=== PATIENT | female | born 1955 | race Caucasian/White ===

== ENCOUNTER 2021-07-10 14:30 | Inpatient (IN) | payer MEDICARE, SELFPAY ==
[2021-07-10] VITALS (7 sets, daily range): BP systolic 110–135; BP diastolic 51–77; PULSE 82–95; RESP 13–18; TEMP 36.4–36.8; O2SAT 96–100; BMI 42.3
--- NOTE | ~2021-07-10 | XR_ITS ---
EXAMINATION: XR CHEST CLINICAL INFORMATION: Chest pain COMPARISON: None TECHNIQUE: Frontal portable view of the chest was obtained. 1615 hours FINDINGS: Lung volume is low. This causes prominence of bronchovascular markings. There are a few scattered patchy airspace opacities in the mid and lower right lung and at the left lung base concerning for an acute process, pneumonia. No pleural effusion or pneumothorax. Cardiac and mediastinal contours are normal. Heart size is normal. Multilevel degenerative spondylosis of the dorsal spine. XR/XR chest 1V IMPRESSION: There are a few scattered patchy airspace opacities in the mid and lower right lung and at the left lung base concerning for an acute process, pneumonia. Consider short-term follow-up PA lateral chest x-ray or CT of chest.
--- NOTE | 2021-07-10 14:35 | ECG_ITS ---
Test Reason : CHEST PAIN Blood Pressure : / mmHG Vent. Rate : 076 BPM Atrial Rate : 076 BPM P-R Int : 140 ms QRS Dur : 076 ms QT Int : 378 ms P-R-T Axes : 044 022 027 degrees QTc Int : 425 ms Normal sinus rhythm Normal ECG No previous ECGs available Referred By: Kehinde Fleming Electronically Signed By:Darron De La Paz
--- NOTE | 2021-07-10 15:22 | PC.NURSE ---
pt refusing to sit in wheelchair in the waiting room, refusing to sit in [address] bed. requesting dc if not placed in a room immediatley
--- NOTE | 2021-07-10 16:03 | ECG_ITS ---
Test Reason : CHEST PAIN Blood Pressure : / mmHG Vent. Rate : 082 BPM Atrial Rate : 082 BPM P-R Int : 142 ms QRS Dur : 080 ms QT Int : 392 ms P-R-T Axes : 041 027 031 degrees QTc Int : 457 ms Normal sinus rhythm Normal ECG When compared with ECG of 10-JUL-2021 14:35, No significant change was found Referred By: Maddi Webster Electronically Signed By:Darron De La Paz
--- NOTE | 2021-07-10 16:07 | PC.NURSE ---
c/o substernal cp, radiating through to back, intermittent, also headache since last night. on 5mg eloquis BID. no trauma. uses 2L home O2. no neuro deficits.
--- NOTE | 2021-07-10 16:14 | ED_ITS ---
HPI - Chest Pain General Chief Complaint: Chest Pain Stated Complaint: Chest Pain Time Seen by Provider: 07/10/21 15:37 Source: patient and EMS Mode of arrival: EMS History of Present Illness HPI narrative: 65-year-old female with a PMHx mast cell disease, GERD, HTN, hypothyroid, NAM, obesity, COVID-19 in late April complicated by pneumonia and PE on Eliquis, now on home O2 2L NC, finished course of Doxycycline yesterday for continued pneumonia, BIBA c/o substernal left-sided chest pain radiating to left breast/back since yesterday. Reports pain is constant/dull. Also reports cough productive of green phlegm and chills. Denies fever, SOB, abdominal pain, nausea/vomiting, pedal edema MD complaint: chest pain Onset (ago): day(s) Related Data Allergies Allergy/AdvReac Type Severity Reaction Status Date / Time morphine Allergy Unknown mast cell Verified 10/11/18 00:00 activation Sulfa (Sulfonamide Allergy Unknown itching Verified 10/11/18 00:00 Antibiotics) vancomycin Allergy Unknown mast cell Verified 10/11/18 00:00 activation Heparin & NaCl Lock Flush Allergy Unknown Uncoded 10/11/18 00:00 muscle relaxants Allergy Unknown mast cell Uncoded 10/11/18 00:00 activation surgical tape Allergy Unknown Uncoded 10/11/18 00:00 Review of Systems Review of Systems: Constitutional: No Fever, + Chills, No Fatigue, No Malaise ENT/Mouth: No Ear Pain, No Nasal Congestion, No Hoarseness, No sore throat, No Swallowing Difficulty Eyes: No Eye Pain, No Swelling, No Redness, No Discharge Cardiovascular: + Chest Pain, No SOB, No Dyspnea on Exertion, No Orthopnea, No Edema, No Palpitations Respiratory: + Cough, + Sputum, No Dyspnea Gastrointestinal: No Nausea, No Vomiting, No Diarrhea, No Constipation, No Abdominal pain Genitourinary: No Dysuria, No Hematuria, No Urinary Incontinence, No Flank Pain Musculoskeletal: No joint pain, No Myalgias, No Joint Swelling Skin: No Skin Lesions, No rash Neuro: No Weakness, No Numbness, No Dizziness, No Headache Yes all other systems are reviewed and are negative PMFSH Past Medical History Attestation statement: The following information was validated with the patient. Medical History COVID-19 Social History Social History Alcohol intake: never Patient Tobacco Use Status: Never used Tobacco Use of substances other than those prescribed or required for medical reasons: No Advance Directives: No Advance Directives Information Provided: No Physical Exam Vital Signs: Vital Signs: Last Vital Signs Temp 98.2 F 07/10/21 19:39 Pulse 83 07/10/21 19:39 Resp 17 07/10/21 19:39 BP 130/58 L 07/10/21 19:39 Pulse Ox 97 07/10/21 19:39 BMI result Body Mass Index 42.3 Const: General: cooperative and no acute distress Orientation/consciousness: patient oriented x3 Limitations: no limitations HENMT: Head: Yes normal to inspection Ears: hearing grossly normal bilatera lly General nose exam: Normal external nose present Face and sinus: Yes normal facial exam Eyes: General: appearance normal, both eyes and all related structures EOM: EOMs intact bilaterally Neck: Neck: Yes normal visual inspection and Yes no meningeal signs Chest: Other: Left anteriorolateral chest wall under breast, reproducing subjective complaint Chest palpation & inspection: no crepitus and tenderness Resp: Effort & Inspection: normal respiratory effort Auscultation: clear to auscultation bilaterally, no rales, no rhonchi and no wheezes Cardio: Rate: regular rate Heart sounds: S1 normal heart sound present and S2 normal heart sound present GI: Inspection: Yes normal to inspection Palpation (GI): Soft to palpation, nontender, no guarding and not rigid Skin: Rashes: no rashes Wounds: no wounds Neuro: General: patient oriented x3 and no meningeal signs Gait exam (Neuro): Normal gait present Extrem: Other: +2 b/l LE pitting edema General: Yes normal to inspection Course Course Course Narrative: XR chest 1V IMPRESSION: There are a few scattered patchy airspace opacities in the mid and lower right lung and at the left lung base concerning for an acute process, pneumonia. Consider short-term follow-up PA lateral chest x-ray or CT of chest. >> concern for HCAP/persistent pneumonia. Will cover with cefepime. Plan will be admission -1956--no leukocytosis. D-dimer negative. Labs otherwise unremarkable. Troponin negative. COVID-19 negative MDM - Chest Pain MDM Narrative Medical decision making narrative: 65-year-old female with a PMHx mast cell disease, GERD, HTN, hypothyroid, NAM, obesity, COVID-19 in late April complicated by pneumonia and PE on Eliquis, now on home O2 2L at rest, 3L with exertion, finished course of Doxycycline yesterday for continued pneumonia, BIBA c/o substernal left-sided chest pain radiating to left breast/back since yesterday. On exam sating 97 % on 2L NC (baseline), lungs CTA, bilateral LE pitting edema, CP reproducible on exam. Concern for pneumonia vs PE vs ACS. Symptoms atypical for dissection/AAA Plan: EKG, labs, CXR, COVID-19 testing, re-evaluate Differential Diagnosis Differential diagnosis: Likely pneumothorax, stable angina, atypical chest pain, st elevation myocardial infarction, costochondritis and chest pain Medical Records Data Attestation: I reviewed the patient's medical records. Lab Data Attestation: I reviewed the patient's lab results. Result diagrams: 07/10/21 18:49 07/10/21 18:49 Labs: Lab Results 07/10/21 07/10/21 07/10/21 Range/Units 17:04 18:49 18:49 WBC 10.1 (4.8-10.8) X10*3/uL RBC 3.67 L (4.20-5.50) X10*6/uL Hgb 11.6 L (12.0-16.0) g/dl Hct 36.5 L (37.0-47.0) % MCV 99.5 H (80.0-98.0) fL MCH 31.6 (27.0-33.0) pg MCHC 31.8 (31.0-35.0) g/dl RDW 16.8 H (11.0-16.0) % Plt Count 435 H (160-400) X10*3/uL MPV 10.1 (9.4-12.3) fL Immature Gran % (Auto) 1.1 H (0.0-0.4) % Neut % (Auto) 64.5 (45-73) % Lymph % (Auto) 27.3 (20-40) % [place] % (Auto) 6.0 (2-11) % Eos % (Auto) 0.7 (0-4) % Baso % (Auto) 0.4 (0-2) % Lymph # (Auto) 2.8 (1.2-4.9) X10*3/uL [place] # (Auto) 0.6 (0.1-1.2) X10*3/uL Eos # (Auto) 0.1 (0.0-0.4) X10*3/uL Baso # (Auto) 0.0 (0.0-0.2) X10*3/uL Abs Immat Gran (auto) 0.11 H (0.00-0.03) X10*3/uL Absolute Neuts (auto) 6.5 (2.0-8.3) x10*3/uL Absolute Nucleated RBC 0.000 (0.0-0.012) X10*3/uL Nucleated RBC % (auto) 0.0 (0.0-0.2) /100WBC PT (9.9-13.0) SEC INR (0.9-1.1) APTT (24.1-38.0) SEC D-Dimer High Sensitivty NG/ML Sodium 141 (135-145) mmol/L Potassium 3.6 (3.3-5.1) mmol/L Chloride 99 (96-108) mmol/L Carbon Dioxide 33 H (22-29) mmol/L Anion Gap 13 (12-20) BUN 13 (9-16) mg/dL Creatinine 0.73 (0.5-1.4) mg/dL Estim Creat Clear Calc 79.7 Estimated GFR > 60 Random Glucose 96 (60-115) mg/dL Lactic Acid (0.5-2.0) mmol/L Calcium 10.0 (8.4-10.2) mg/dL Magnesium 2.0 (1.6-2.6) mg/dL Total Bilirubin 0.4 (0.0-1.0) mg/dL Direct Bilirubin 0.2 (0.0-0.5) mg/dL AST 14 (5-31) U/L ALT 18 (0-31) U/L Alkaline Phosphatase 82 (39-117) U/L Troponin I High Sens (<3.5-17.0) ng/L B-Natriuretic Peptide (<100) pg/mL Total Protein 7.0 (6.5-8.0) g/dL Albumin 3.9 (3.5-5.0) g/dL COVID-19 (MATT) Negative (Negative) COVID-19 Clin Com See Note 07/10/21 07/10/21 07/10/21 Range/Units 18:49 18:49 18:49 WBC (4.8-10.8) X10*3/uL RBC (4.20-5.50) X10*6/uL Hgb (12.0-16.0) g/dl Hct (37.0-47.0) % MCV (80.0-98.0) fL MCH (27.0-33.0) pg MCHC (31.0-35.0) g/dl RDW (11.0-16.0) % Plt Count (160-400) X10*3/uL MPV (9.4-12.3) fL Immature Gran % (Auto) (0.0-0.4) % Neut % (Auto) (45-73) % Lymph % (Auto) (20-40) % [place] % (Auto) (2-11) % Eos % (Auto) (0-4) % Baso % (Auto) (0-2) % Lymph # (Auto) (1.2-4.9) X10*3/uL [place] # (Auto) (0.1-1.2) X10*3/uL Eos # (Auto) (0.0-0.4) X10*3/uL Baso # (Auto) (0.0-0.2) X10*3/uL Abs Immat Gran (auto) (0.00-0.03) X10*3/uL Absolute Neuts (auto) (2.0-8.3) x10*3/uL Absolute Nucleated RBC (0.0-0.012) X10*3/uL Nucleated RBC % (auto) (0.0-0.2) /100WBC PT 13.1 H (9.9-13.0) SEC INR 1.2 H (0.9-1.1) APTT 43.7 H (24.1-38.0) SEC D-Dimer High Sensitivty < 150 NG/ML Sodium (135-145) mmol/L Potassium (3.3-5.1) mmol/L Chloride (96-108) mmol/L Carbon Dioxide (22-29) mmol/L Anion Gap (12-20) BUN (9-16) mg/dL Creatinine (0.5-1.4) mg/dL Estim Creat Clear Calc Estimated GFR Random Glucose (60-115) mg/dL Lactic Acid (0.5-2.0) mmol/L Calcium (8.4-10.2) mg/dL Magnesium (1.6-2.6) mg/dL Total Bilirubin (0.0-1.0) mg/dL Direct Bilirubin (0.0-0.5) mg/dL AST (5-31) U/L ALT (0-31) U/L Alkaline Phosphatase (39-117) U/L Troponin I High Sens < 3.5 (<3.5-17.0) ng/L B-Natriuretic Peptide 35 (<100) pg/mL Total Protein (6.5-8.0) g/dL Albumin (3.5-5.0) g/dL COVID-19 (MATT) (Negative) COVID-19 Clin Com 07/10/21 Range/Units 18:49 WBC (4.8-10.8) X10*3/uL RBC (4.20-5.50) X10*6/uL Hgb (12.0-16.0) g/dl Hct (37.0-47.0) % MCV (80.0-98.0) fL MCH (27.0-33.0) pg MCHC (31.0-35.0) g/dl RDW (11.0-16.0) % Plt Count (160-400) X10*3/uL MPV (9.4-12.3) fL Immature Gran % (Auto) (0.0-0.4) % Neut % (Auto) (45-73) % Lymph % (Auto) (20-40) % [place] % (Auto) (2-11) % Eos % (Auto) (0-4) % Baso % (Auto) (0-2) % Lymph # (Auto) (1.2-4.9) X10*3/uL [place] # (Auto) (0.1-1.2) X10*3/uL Eos # (Auto) (0.0-0.4) X10*3/uL Baso # (Auto) (0.0-0.2) X10*3/uL Abs Immat Gran (auto) (0.00-0.03) X10*3/uL Absolute Neuts (auto) (2.0-8.3) x10*3/uL Absolute Nucleated RBC (0.0-0.012) X10*3/uL Nucleated RBC % (auto) (0.0-0.2) /100WBC PT (9.9-13.0) SEC INR (0.9-1.1) APTT (24.1-38.0) SEC D-Dimer High Sensitivty NG/ML Sodium (135-145) mmol/L Potassium (3.3-5.1) mmol/L Chloride (96-108) mmol/L Carbon Dioxide (22-29) mmol/L Anion Gap (12-20) BUN (9-16) mg/dL Creatinine (0.5-1.4) mg/dL Estim Creat Clear Calc Estimated GFR Random Glucose (60-115) mg/dL Lactic Acid 1.2 (0.5-2.0) mmol/L Calcium (8.4-10.2) mg/dL Magnesium (1.6-2.6) mg/dL Total Bilirubin (0.0-1.0) mg/dL Direct Bilirubin (0.0-0.5) mg/dL AST (5-31) U/L ALT (0-31) U/L Alkaline Phosphatase (39-117) U/L Troponin I High Sens (<3.5-17.0) ng/L B-Natriuretic Peptide (<100) pg/mL Total Protein (6.5-8.0) g/dL Albumin (3.5-5.0) g/dL COVID-19 (MATT) (Negative) COVID-19 Clin Com ECG Data ECG #1: Attestation: I personally reviewed and interpreted this ECG as follows: ECG interpretation date: 07/10/21 ECG interpretation time: 14:35 Prior ECG tracings: available for review Interpretation: EKG normal sinus rhythm with a rate of 82. [place] interval 142. QTC 457. No significant change when compared to prior EKG. Discharge Plan Discharge Clinical Impression: Pneumonia
[2021-07-10 17:49] LABS: COVID-19 Test Negative (Negative); IDNOW Serial# 9DD0AD1C
[2021-07-10] MEDS: Acetaminophen 325 MG TABLET 650 MG PO (18:07)
--- NOTE | 2021-07-10 18:09 | PC.NURSE ---
very difficult stick. still awaits phlebotomy for labs. heat packed. has been a very difficult stick. unlabored resp at rest in bed in 2L.
[2021-07-10 19:06] LABS: MANUAL DIFF FLAG NO
[2021-07-10] MEDS: cefEPime HCl 2 GM in 0.9 % Sodium Chloride 50 ML IV (19:12)
[2021-07-10 19:19] LABS: Lactic Acid 1.2 mmol/L (0.5-2.0)
[2021-07-10 19:23] LABS: Alanine Aminotransferase 18 U/L (0-31); Albumin Level 3.9 g/dL (3.5-5.0); Alkaline Phosphatase 82 U/L (39-117); Anion Gap 13 (12-20); Aspartate Amino Transferase 14 U/L (5-31); Bilirubin Direct 0.2 mg/dL (0.0-0.5); Bilirubin Total 0.4 mg/dL (0.0-1.0); Blood Urea Nitrogen 13 mg/dL (9-16); Carbon Dioxide 33 mmol/L (22-29); Chloride 99 mmol/L (96-108); Creatinine Clr Calc Pharmacy 79.7; Estimated Glomerular Filt Rate > 60; Glucose Random 96 mg/dL (60-115); Potassium 3.6 mmol/L (3.3-5.1); Sodium 141 mmol/L (135-145)
[2021-07-10 19:25] LABS: Basophils Percent Auto 0.4 % (0-2); Eosinophils Absolute Auto 0.1 X10*3/uL (0.0-0.4); Eosinophils Percent Auto 0.7 % (0-4); Hematocrit 36.5 % (37.0-47.0); Hemoglobin 11.6 g/dl (12.0-16.0); Imm Gran Abs Auto 0.11 X10*3/uL (0.00-0.03); Imm Gran Pct Auto 1.1 % (0.0-0.4); Lymphocytes Absolute Auto 2.8 X10*3/uL (1.2-4.9); Lymphocytes Percent Auto 27.3 % (20-40); Mean Corpuscular HGB Conc 31.8 g/dl (31.0-35.0); Mean Corpuscular Hemoglobin 31.6 pg (27.0-33.0); Mean Corpuscular Volume 99.5 fL (80.0-98.0); Mean Platelet Volume 10.1 fL (9.4-12.3); Monocytes Absolute Auto 0.6 X10*3/uL (0.1-1.2); Neutrophils Absolute Auto 6.5 x10*3/uL (2.0-8.3); Neutrophils Percent Auto 64.5 % (45-73); Platelet Count 435 X10*3/uL (160-400); Red Blood Count 3.67 X10*6/uL (4.20-5.50); Red Cell Distribution Width 16.8 % (11.0-16.0); White Blood Count 10.1 X10*3/uL (4.8-10.8)
[2021-07-10 19:27] LABS: B Type Natriuretic Peptide 35 pg/mL (<100); Troponin-I High Sensitivity < 3.5 ng/L (<3.5-17.0)
[2021-07-10 19:45] LABS: INTERNATIONAL NORM RATIO 1.2 (0.9-1.1); Prothrombin Time 13.1 SEC (9.9-13.0)
[2021-07-10 19:47] LABS: Partial Thromboplastin Time 43.7 SEC (24.1-38.0)
[2021-07-10 19:50] LABS: D Dimer High Sensitivity < 150 NG/ML
--- NOTE | 2021-07-10 20:47 | PHA.MEDREC ---
Pharmacy Consult ? Medication Reconciliation Pharmacy has completed the medication reconciliation. Spoke to patient, she took all her medications before coming in today.
--- NOTE | 2021-07-10 22:32 | P.HPHOSP_ITS ---
History of Present Illness Date of Service: 07/10/21 Chief Complaint: sob this is a 65-year-old female past medical history of PE on Eliquis, mastocytosis, hypothyroidism, hypertension, GERD, restless leg syndrome who presents to the hospital with complaints of left-sided chest pain. Patient gives me a lengthy history regarding her recent COVID infection, patient was found to have COVID in April, complicated by PE, and recurrent pneumonia. Patient reports that she was being treated up until June 09 at the hospitalfor the above-mentioned issues, due to the COVID infection as well as the PE patient is now on chronic 2 L of oxygen. She reports that about 10 days ago she started feeling unwell. She started having significant cough, shortness of breath on exertion, chills, her primary care doctor got a chest x-ray which showed persistent pneumonia, she was started on doxycycline finished her course yesterday. Patient reports that while on doxycycline she did improve but once her doxycycline completed she once again started feeling unwell. She complained of left-sided chest pain to her visiting nurse who encouraged her to come to the hospital. Patient describes the chest pain as a dull ache radiating to the back, worse with cough, intermittent, 4/10 at its worse and is usually when she has a coughing bout. Currently resolved and it is at 0. She feels that the pain is at the site of her pneumonia. Denies any fever, no chills, no change in vision, headache, no nausea vomiting, abdominal pain, no urinary symptoms and no lower extremity edema. On arrival to the ED patient hemodynamically stable with no significant abnormal vitals Labs are significant for WBC count of 10.0, hemoglobin of 11.6, hematocrit 36.5, PT of 13.1, INR of 1.2, Chest x-ray showed few scattered patchy airspace opacities in the mid and lower right lung and at the left lung base concerning for an acute process, pneumonia. Patient given IV antibiotics and will be admitted for further management Review of Systems Review of Systems: Yes all other systems are reviewed and are negative [facility] Medical History (Updated 07/11/21 @ 06:29 by Ean Cunningham MD) COVID-19 Hypertension Hypothyroidism Mastocytosis Pulmonary emboli Family History (Updated 07/11/21 @ 06:28 by Ean Cunningham MD) Other No family history of coronary artery disease Surgical History (Updated 07/11/21 @ 06:27 by Ean Cunningham MD) History of bilateral knee replacement Social History Alcohol intake: never Patient Tobacco Use Status: Never used Tobacco Use of substances other than those prescribed or required for medical reasons: No Advance Directives: No Advance Directives Information Provided: No Meds Allergies Allergy/AdvReac Type Severity Reaction Status Date / Time morphine Allergy Unknown mast cell Verified 10/11/18 00:00 activation Sulfa (Sulfonamide Allergy Unknown itching Verified 10/11/18 00:00 Antibiotics) vancomycin Allergy Unknown mast cell Verified 10/11/18 00:00 activation amoxicillin [From Augmentin] Allergy Facial Verified 07/10/21 22:58 Swelling clavulanic acid Allergy Facial Verified 07/10/21 22:58 [From Augmentin] Swelling heparin AdvReac Cough Verified 07/10/21 22:57 Heparin & NaCl Lock Flush Allergy Unknown coughing Uncoded 07/10/21 22:57 chocking fit muscle relaxants Allergy Unknown mast cell Uncoded 10/11/18 00:00 activation surgical tape Allergy Unknown Cough Uncoded 07/10/21 22:57 Active Medications: Current Medications Apixaban (Apixaban 5 Mg Tablet) 5 mg PO BID JR Baclofen (Baclofen 20 Mg Tablet) 20 mg PO BEDTIME JR Diphenhydramine HCl (Diphenhydramine Hcl 25 Mg Tablet) 25 mg PO BEDTIME JR Gabapentin (Gabapentin 300 Mg Capsule) 300 mg PO TID JR Levothyroxine Sodium (Levothyroxine Sodium 88 Mcg Tablet) 88 mcg PO DAILY JR Montelukast Sodium (Montelukast Sodium 10 Mg Tablet) 10 mg PO DAILY JR Non-Formulary Medication (Losartan-Hydrochlorothiazide) 1 tab PO DAILY JR Non-Formulary Medication (Pantoprazole) 40 mg PO BID JR Pramipexole Dihydrochloride (Pramipexole Di-Hcl 0.25 Mg Tablet) 0.25 mg PO BEDTIME JR Home Medications Medication Instructions Recorded Confirmed Last Taken Type apixaban 5 mg tablet (Eliquis) 1 tab PO BID 07/10/21 07/10/21 07/10/21 History baclofen 20 mg tablet 1 tab PO BEDTIME 07/10/21 07/10/21 07/09/21 History diphenhydramine HCl 25 mg tablet 25 mg PO BEDTIME 07/10/21 07/10/21 07/09/21 History gabapentin 300 mg capsule 1 cap PO TID 07/10/21 07/10/21 07/10/21 History levothyroxine 88 mcg tablet 1 tab PO DAILY 07/10/21 07/10/21 07/10/21 History (Levoxyl) losartan 100 1 tab PO DAILY 07/10/21 07/10/21 07/10/21 History mg-hydrochlorothiazide 25 mg tablet montelukast 10 mg tablet 1 tab PO DAILY 07/10/21 07/10/21 07/10/21 History pantoprazole 40 mg tablet,delayed 40 mg PO BID 07/10/21 07/10/21 07/10/21 History release pramipexole 0.25 mg tablet 1 tab PO BEDTIME 07/10/21 07/10/21 07/09/21 History Physical Exam Vital Signs and Narrative: Vital Signs: Last Vital Signs Temp 98.1 F 07/10/21 22:29 Pulse 85 07/10/21 22:29 Resp 13 07/10/21 22:29 BP 112/51 L 07/10/21 22:29 Pulse Ox 96 07/10/21 22:29 BMI result Body Mass Index 42.3 Const: General: cooperative and no acute distress Orientation/consciousness: patient oriented x3 Eyes: General: appearance normal, both eyes and all related structures Pupils: Equal, round and reactive pupils present Resp: Other: bilateral crackles Effort & Inspection: normal respiratory effort Cardio: Rate: regular rate Rhythm: regular rhythm GI: Palpation (GI): Soft to palpation Auscultation: normal bowel sounds Skin: General skin exam: no rashes or lesions noted Neuro: General: patient oriented x3 Cranial nerves: Yes Equal, round and reactive pupils present Cognition (Neuro): normal cognition Extrem: General: Yes normal to inspection and Yes no pedal edema Results Labs CBC and Chem 7: 07/10/21 18:49 07/10/21 18:49 Labs: Laboratory Results - last 24 hr 07/10/21 07/10/21 07/10/21 17:04 18:49 18:49 Hgb 11.6 L MCV 99.5 H MCH 31.6 MCHC 31.8 RDW 16.8 H Plt Count 435 H MPV 10.1 Immature Gran % (Auto) 1.1 H Neut % (Auto) 64.5 Lymph % (Auto) 27.3 [place] % (Auto) 6.0 Eos % (Auto) 0.7 Baso % (Auto) 0.4 Lymph # (Auto) 2.8 [place] # (Auto) 0.6 Eos # (Auto) 0.1 Baso # (Auto) 0.0 Abs Immat Gran (auto) 0.11 H Absolute Neuts (auto) 6.5 Absolute Nucleated RBC 0.000 Nucleated RBC % (auto) 0.0 PT INR APTT D-Dimer High Sensitivty Anion Gap 13 Estim Creat Clear Calc 79.7 Estimated GFR > 60 Random Glucose 96 Lactic Acid Calcium 10.0 Magnesium 2.0 Total Bilirubin 0.4 Direct Bilirubin 0.2 AST 14 ALT 18 Alkaline Phosphatase 82 B-Natriuretic Peptide Total Protein 7.0 Albumin 3.9 COVID-19 (MATT) Negative COVID-19 Clin Com See Note 07/10/21 07/10/21 07/10/21 18:49 18:49 18:49 Hgb MCV MCH MCHC RDW Plt Count MPV Immature Gran % (Auto) Neut % (Auto) Lymph % (Auto) [place] % (Auto) Eos % (Auto) Baso % (Auto) Lymph # (Auto) [place] # (Auto) Eos # (Auto) Baso # (Auto) Abs Immat Gran (auto) Absolute Neuts (auto) Absolute Nucleated RBC Nucleated RBC % (auto) PT 13.1 H INR 1.2 H APTT 43.7 H D-Dimer High Sensitivty < 150 Anion Gap Estim Creat Clear Calc Estimated GFR Random Glucose Lactic Acid 1.2 Calcium Magnesium Total Bilirubin Direct Bilirubin AST ALT Alkaline Phosphatase B-Natriuretic Peptide 35 Total Protein Albumin COVID-19 (MATT) COVID-19 Clin Com ECG Interpretation: EKG showed normal sinus rhythm with no ST T wave changes Imaging Radiologist's Impressions: Impressions Chest X-Ray 07/10/21 16:15 IMPRESSION: There are a few scattered patchy airspace opacities in the mid and lower right lung and at the left lung base concerning for an acute process, pneumonia. Consider short-term follow-up PA lateral chest x-ray or CT of chest. Assessment and Plan (1) Pneumonia: Status: Acute (2) Pleuritic chest pain: Status: Acute Plan 65-year-old female with history of COVID-19 pneumonia as well as PE presents to the hospital chest pain found to have pneumonia # pleuritic chest pain - most likely secondary to pneumonia - troponin negative, EKG shows no ACS - treatment of pneumonia, conservative management # pneumonia - failed outpatient therapy - will have to treat for hospital-acquired given her recent admission - broad-spectrum antibiotics - follow cultures # history of PE - continue Eliquis # hypertension - stable - continue home antihypertensives # hypothyroidism - continue levothyroxine DVT prophylaxis: Eliquis Quality Stroke Does the patient have a stroke diagnosis?: No VTE Prior VTE?: No VTE Risk Level:: Medical - moderate - high VTE Device Contraindication: Treatment Not Indicated VTE Drug Contraindication: N/A - Med Ordered
[2021-07-10] MEDS: Baclofen 20 MG TABLET PO (22:53)
[2021-07-10] MEDS: Apixaban 5 MG TABLET PO (22:53)
[2021-07-10] MEDS: Gabapentin 300 MG CAPSULE PO (22:53)
[2021-07-10] MEDS: diphenhydrAMINE HCL 25 MG TABLET PO (22:53)
[2021-07-10] MEDS: Pramipexole Di-HCL 0.25 MG TABLET PO (22:59)
[2021-07-11] VITALS (7 sets, daily range): BP systolic 100–134; BP diastolic 42–79; PULSE 87–96; RESP 13–18; TEMP 36.6–37; O2SAT 95–100
--- NOTE | 2021-07-11 00:41 | PC.NURSE ---
Addendum entered by Leesa Villalobos 07/11/21 00:43: medication levofloxacin that was due at 2230 not given due to allergy. hospitalist made aware. Original Note: hospitalist made aware of pt newly found allergy to iv antib. levophloxine
[2021-07-11] MEDS: cefEPime HCl 2 GM in 0.9 % Sodium Chloride 50 ML IV ×3 (03:00→17:11)
[2021-07-11] MEDS: Doxycycline Hyclate 100 MG in 0.9 % Sodium Chloride 250 ML 166.67 MG IV ×2 (03:01→13:25)
[2021-07-11] MEDS: Acetaminophen 325 MG TABLET 650 MG PO (04:53)
[2021-07-11 07:57] LABS: MANUAL DIFF FLAG NO
[2021-07-11 07:59] LABS: Basophils Percent Auto 0.4 % (0-2); Eosinophils Absolute Auto 0.1 X10*3/uL (0.0-0.4); Eosinophils Percent Auto 1.2 % (0-4); Hematocrit 34.7 % (37.0-47.0); Hemoglobin 10.8 g/dl (12.0-16.0); Imm Gran Abs Auto 0.07 X10*3/uL (0.00-0.03); Imm Gran Pct Auto 0.9 % (0.0-0.4); Lymphocytes Absolute Auto 2.1 X10*3/uL (1.2-4.9); Lymphocytes Percent Auto 25.1 % (20-40); Mean Corpuscular HGB Conc 31.1 g/dl (31.0-35.0); Mean Corpuscular Hemoglobin 31.1 pg (27.0-33.0); Mean Platelet Volume 10.3 fL (9.4-12.3); Monocytes Absolute Auto 0.6 X10*3/uL (0.1-1.2); Monocytes Percent Auto 7.2 % (2-11); Neutrophils Absolute Auto 5.4 x10*3/uL (2.0-8.3); Neutrophils Percent Auto 65.2 % (45-73); Platelet Count 377 X10*3/uL (160-400); Red Blood Count 3.47 X10*6/uL (4.20-5.50); Red Cell Distribution Width 16.9 % (11.0-16.0); White Blood Count 8.2 X10*3/uL (4.8-10.8)
[2021-07-11 08:12] LABS: Anion Gap 11 (12-20); Blood Urea Nitrogen 13 mg/dL (9-16); Calcium 9.2 mg/dL (8.4-10.2); Carbon Dioxide 34 mmol/L (22-29); Chloride 102 mmol/L (96-108); Creatinine Clr Calc Pharmacy 77.6; Estimated Glomerular Filt Rate > 60; Glucose Random 163 mg/dL (60-115); Potassium 3.5 mmol/L (3.3-5.1); Sodium 143 mmol/L (135-145)
--- NOTE | 2021-07-11 09:24 | P.PNIM_ITS ---
Subjective Subjective Date of Service: 07/11/21 Interval History: pneumonia/pleurtic rhodes Review of Systems seems improving Denies any chest pain or cough or phlegm. Physical Exam Vital Signs: Vital Signs: Last Vital Signs Temp 97.9 F 07/11/21 08:26 Pulse 87 07/11/21 08:26 Resp 15 07/11/21 08:26 BP 106/58 L 07/11/21 08:26 Pulse Ox 97 07/11/21 08:26 BMI result Body Mass Index 42.3 Appearance: Alert.? Oriented X3.? not in distress.? Eyes: Pupils equal, round and reactive to light.? Sclera nonicteric.? ENT: Pharynx normal.? Moist mucous membranes. cvs: rrr, [id number] , no murmur res: air entry seems similar , slightly diminshed at bases. abd: no rebound or guarding ,nt, bs present. ext pulses present , no cyanosis ,Gait well balanced well coordinated. neuro: axo3 , nonfocal. Objective Data Active Medications Acetaminophen (Acetaminophen 325 Mg Tablet) 650 mg PO Q6H PRN PRN Reason: Pain, Mild (Pain Scale 1-3) Last Admin: 07/11/21 04:53 Dose: 650 mg Documented by: ANSELMO Apixaban (Apixaban 5 Mg Tablet) 5 mg PO BID [facility] Last Admin: 07/10/21 22:53 Dose: 5 mg Documented by: PRAVIN Baclofen (Baclofen 20 Mg Tablet) 20 mg PO BEDTIME [facility] Last Admin: 07/10/21 22:53 Dose: 20 mg Documented by: PRAVIN Diphenhydramine HCl (Diphenhydramine Hcl 25 Mg Tablet) 25 mg PO BEDTIME [facility] Last Admin: 07/10/21 22:53 Dose: 25 mg Documented by: PRAVIN Docusate Sodium (Docusate Sodium 100 Mg Capsule) 100 mg PO DAILY PRN PRN Reason: Constipation Gabapentin (Gabapentin 300 Mg Capsule) 300 mg PO TID [facility] Last Admin: 07/10/21 22:53 Dose: 300 mg Documented by: PRVAIN Hydrochlorothiazide (Hydrochlorothiazide 25 Mg Tablet) 25 mg PO DAILY [facility] Cefepime HCl 2 gm/ Sodium (Chloride) 50 mls @ 100 mls/hr IV Q8H [facility] Last Infusion: 07/11/21 03:59 Dose: 0 mls/hr Documented by: PRAVIN Doxycycline Hyclate 100 mg/ (Sodium Chloride) 250 mls @ 166.67 mls/hr IV Q12H [facility] Last Infusion: 07/11/21 06:54 Dose: 0 mls/hr Documented by: PRAVIN Levothyroxine Sodium (Levothyroxine Sodium 88 Mcg Tablet) 88 mcg PO DAILY@0600 [facility] Losartan Potassium (Losartan Potassium 50 Mg Tablet) 100 mg PO DAILY [facility] Montelukast Sodium (Montelukast Sodium 10 Mg Tablet) 10 mg PO DAILY JR Omeprazole (Omeprazole 20 Mg Capsule.Dr) 20 mg PO BID JR Ondansetron HCl (Ondansetron Hcl 4 Mg/2 Ml Vial) 4 mg IVPUSH Q8H PRN PRN Reason: Nausea and Vomiting Pramipexole Dihydrochloride (Pramipexole Di-Hcl 0.25 Mg Tablet) 0.25 mg PO BEDTIME [facility] Last Admin: 07/10/21 22:59 Dose: 0.25 mg Documented by: PRAVIN Sodium Chloride (0.9 % Sodium Chloride Flush 3 Ml Syringe) 3 ml IVFLUSH QSHIFT [facility] Last Admin: 07/11/21 00:36 Dose: Not Given Documented by: PRAVIN Non-Admin Reason: Med Not Available Labs CBC & Chem 7: 07/11/21 07:32 07/11/21 07:32 Labs: Laboratory Results - last 24 hr 07/10/21 07/10/21 07/10/21 17:04 18:49 18:49 MCV 99.5 H MCH 31.6 MCHC 31.8 RDW 16.8 H Plt Count 435 H MPV 10.1 Immature Gran % (Auto) 1.1 H Neut % (Auto) 64.5 Lymph % (Auto) 27.3 [place] % (Auto) 6.0 Eos % (Auto) 0.7 Baso % (Auto) 0.4 Lymph # (Auto) 2.8 [place] # (Auto) 0.6 Eos # (Auto) 0.1 Baso # (Auto) 0.0 Abs Immat Gran (auto) 0.11 H Absolute Neuts (auto) 6.5 Absolute Nucleated RBC 0.000 Nucleated RBC % (auto) 0.0 PT INR APTT D-Dimer High Sensitivty Anion Gap 13 Estim Creat Clear Calc 79.7 Estimated GFR > 60 Random Glucose 96 Lactic Acid Calcium 10.0 Magnesium 2.0 Total Bilirubin 0.4 Direct Bilirubin 0.2 AST 14 ALT 18 Alkaline Phosphatase 82 B-Natriuretic Peptide Total Protein 7.0 Albumin 3.9 COVID-19 (MATT) Negative COVID-19 Clin Com See Note 07/10/21 07/10/21 07/10/21 18:49 18:49 18:49 MCV MCH MCHC RDW Plt Count MPV Immature Gran % (Auto) Neut % (Auto) Lymph % (Auto) [place] % (Auto) Eos % (Auto) Baso % (Auto) Lymph # (Auto) [place] # (Auto) Eos # (Auto) Baso # (Auto) Abs Immat Gran (auto) Absolute Neuts (auto) Absolute Nucleated RBC Nucleated RBC % (auto) PT 13.1 H INR 1.2 H APTT 43.7 H D-Dimer High Sensitivty < 150 Anion Gap Estim Creat Clear Calc Estimated GFR Random Glucose Lactic Acid 1.2 Calcium Magnesium Total Bilirubin Direct Bilirubin AST ALT Alkaline Phosphatase B-Natriuretic Peptide 35 Total Protein Albumin COVID-19 (MATT) COVID-19 Clin Com 07/11/21 07/11/21 07:32 07:32 MCV 100.0 H MCH 31.1 MCHC 31.1 RDW 16.9 H Plt Count 377 MPV 10.3 Immature Gran % (Auto) 0.9 H Neut % (Auto) 65.2 Lymph % (Auto) 25.1 [place] % (Auto) 7.2 Eos % (Auto) 1.2 Baso % (Auto) 0.4 Lymph # (Auto) 2.1 [place] # (Auto) 0.6 Eos # (Auto) 0.1 Baso # (Auto) 0.0 Abs Immat Gran (auto) 0.07 H Absolute Neuts (auto) 5.4 Absolute Nucleated RBC 0.000 Nucleated RBC % (auto) 0.0 PT INR APTT D-Dimer High Sensitivty Anion Gap 11 L Estim Creat Clear Calc 77.6 Estimated GFR > 60 Random Glucose 163 H Lactic Acid Calcium 9.2 D Magnesium Total Bilirubin Direct Bilirubin AST ALT Alkaline Phosphatase B-Natriuretic Peptide Total Protein Albumin COVID-19 (MATT) COVID-19 Clin Com Assessment and Plan (1) Pleuritic chest pain: Status: Acute (2) Pneumonia: Status: Acute Plan 65-year-old female with history of COVID-19 pneumonia as well as PE presents to the hospital? chest pain found to have pneumonia 1.? pleuritic chest pain -? most likely secondary to pneumonia -? troponin negative, EKG shows no ACS thought to be possible related to pneumonia,? conservative management 2.? pneumonia: failed outpatient therapy -? will have to treat for hospital-acquired given her recent admission -? broad-spectrum antibiotics -? follow cultures 3.? history of PE -? continue Eliquis 4.? hypertension -? stable -? continue home antihypertensives 5.? hypothyroidism-? continue levothyroxine ?DVT prophylaxis: [email or web address] Quality Stroke Does the patient have a stroke diagnosis?: No VTE Prior VTE?: No VTE Risk Level:: Medical - moderate - high VTE Device Contraindication: Treatment Not Indicated VTE Drug Contraindication: N/A - Med Ordered
[2021-07-11 09:45] LABS: Estimated Average Glucose 126 mg/dL
[2021-07-11] MEDS: Losartan Potassium 50 MG TABLET 100 MG PO (10:32)
[2021-07-11] MEDS: Omeprazole 20 MG CAPSULE.DR PO ×2 (10:33→20:18)
[2021-07-11] MEDS: Apixaban 5 MG TABLET PO ×2 (10:33→20:19)
[2021-07-11] MEDS: Gabapentin 300 MG CAPSULE PO ×3 (10:33→20:17)
[2021-07-11] MEDS: hydroCHLOROthiazide 25 MG TABLET PO (10:33)
[2021-07-11] MEDS: Levothyroxine Sodium 88 MCG TABLET PO (10:34)
[2021-07-11] MEDS: 0.9 % Sodium Chloride Flush 3 ML SYRINGE IVFLUSH (10:34)
[2021-07-11] MEDS: Montelukast Sodium 10 MG TABLET PO (10:34)
--- NOTE | 2021-07-11 12:23 | P.CDIC_ITS ---
CDI Concurrent Query Documentation Clarification: PHYSICIAN'S DOCUMENTATION REQUEST Date of Query: 07/11/21 1223 Patient Name: Katelynn Webster Admit Date: 07/10/21 Dear Doctor, A review of the medical record indicates additional documentation may be needed. Please review below and update the documentation accordingly. Clinical Indicators: Height: [] 5 FT Weight: [] 98.43 kg BMI: [] 42.4 Other Clinical Notes Supporting Significance of the BMI: Risk Factors/Clinical Indicators/Treatments If possible, please provide an associated diagnosis related to the abnormal BMI, such as: For a BMI >= 40: * Overweight * Obesity * Due to excess calories * Drug induced * Due to other cause * Severe or Morbid Obesity * With alveolar hypoventilation * Without alveolar hypoventilation Or: * BMI is not significant * Other (please specify) * Unable to determine Use of terms such as suspected, likely, concern for, or probable (associated with a specific diagnosis that is being evaluated, monitored, or treated as if it exists) are acceptable and can be coded in the inpatient setting, when documented at the time of discharge. Thank you, Lori Adams RN Extension: [phone] Please use your independent medical judgment in providing your response. THIS QUERY IS PART OF THE PERMANENT MEDICAL RECORD Provider Response: Other Other Diagnosis: morbid obesity
--- NOTE | 2021-07-11 14:46 | MHC.CM.PN ---
PT REPORTS SHE LIVES AT HOME WITH HER AND IS INDEPENDENT WITH SELF CARE PT REPORTS SHE WAS IN [facility] WITH PNEUMONIA AND COVID IN MAY AND SINCE DISCHARGING, HAS BEEN DEPENDENT ON HOME OXYGEN. SHE REPORTS SHE ALSO HAD A VNA FOR SN AND PT HOWEVER THE PT WAS DISCONTINUED. PT REPORTS SHE THINKS IT IS [facility] SHE IS ACTIVE WITH BUT SHE IS NOT SURE. REFERRAL PLACED TO CONFIRM PTS STATUS WITH AGENCY. PT REPORTS HER PCP IS ÓSCAR SANTOS PT REPORTS SHE HAS A HCP NAMING HER AND DAUGHTER HER AGENTS PT REPORTS SHE DID GET THE COVID-19 VACCINES. SHE RECEIVED TWO DOSES OF PFIZER (08/25/20&09/11/20) PT PROVIDED A COPY OF HER VACCINE CARD, A COPY WAS SCANNED INTO [employer] AND SENT TO MEDICAL RECORDS. CURRENT DC PLAN IS [facility] WITH RESUMPTION OF [facility] FAMILY TO TRANSPORT -
[2021-07-11] MEDS: Baclofen 20 MG TABLET PO (20:18)
[2021-07-11] MEDS: Pramipexole Di-HCL 0.25 MG TABLET PO (20:18)
[2021-07-11] MEDS: diphenhydrAMINE HCL 25 MG TABLET PO (20:19)
--- NOTE | 2021-07-11 20:30 | PC.NURSE ---
Addendum entered by Lawrence Zarate RN 07/11/21 23:16: Assumed care of pt Pt sitting on chair watching TV Pt requesting meds to be given around 2029. Pt states will need meds for restless leg syndrome to take effect so she can go to sleep. Pt medicated per JUL Pt tolerated well Pt ambulatory. gait even and steady Will continue to monitor Original Note: As
[2021-07-12] MEDS: cefEPime HCl 2 GM in 0.9 % Sodium Chloride 50 ML IV (01:47)
[2021-07-12 02:08] VITALS: RESP 16
[2021-07-12] MEDS: Doxycycline Hyclate 100 MG in 0.9 % Sodium Chloride 250 ML 166.67 MG IV (02:30)
--- NOTE | 2021-07-12 02:44 | PC.NURSE ---
Pt medicated per JUL Pt tolerating abx. Will continue to monitor
[2021-07-12 05:46] VITALS: RESP 14
[2021-07-12] MEDS: Levothyroxine Sodium 88 MCG TABLET PO (05:58)
--- NOTE | 2021-07-12 08:18 | PC.NURSE ---
Pt received from security shift supervisor: Pt AOx4 and offers no complaints. Heart sounds regular and lungs clear. Pt abd soft and non-tender. Pt self ambulatory to with no issues.
[2021-07-12 08:26] VITALS: BP 160/70; PULSE 103; RESP 16; TEMP 36.9; O2SAT 95
[2021-07-12] MEDS: Gabapentin 300 MG CAPSULE PO (08:32)
[2021-07-12] MEDS: Apixaban 5 MG TABLET PO (08:32)
[2021-07-12] MEDS: hydroCHLOROthiazide 25 MG TABLET PO (08:32)
[2021-07-12] MEDS: Montelukast Sodium 10 MG TABLET PO (08:32)
[2021-07-12] MEDS: Losartan Potassium 50 MG TABLET 100 MG PO (08:32)
[2021-07-12] MEDS: Omeprazole 20 MG CAPSULE.DR PO (08:32)
[2021-07-12 10:02] VITALS: O2SAT 94
--- NOTE | 2021-07-12 10:35 | P.DS_ITS ---
DS: Providers Provider Date of Service: 07/12/21 Date of admission: 07/10/21 22:27 Primary care physician: Unknown Physician DS: Diagnosis Discharge Diagnosis (1) Pleuritic chest pain: Status: Acute (2) Pneumonia: Status: Acute DS: Summary Hospital Course Hospital Course: 65-year-old female past medical history of PE on Eliquis, mastocytosis, hypothyroidism, hypertension, GERD, restless leg syndrome who presents to the hospital with complaints of left-sided chest pain.? Patient gives me a lengthy history regarding her recent COVID infection, patient was found to have COVID in April, complicated by PE, and recurrent pneumonia.? Patient reports? that she was being treated up until June 09? at the hospitalfor the above-mentioned issues,? due to the COVID infection as well as the PE patient is now on chronic 2 L of oxygen.? She reports that about 10 days ago she started feeling unwell.? She started having significant cough, shortness of breath on exertion, chills, her primary care doctor got a chest x-ray which showed persistent pneumonia, she was started on doxycycline finished her course yesterday.? Patient reports that while on doxycycline she did improve but once her doxycycline completed she once again started feeling unwell.? She complained of left-sided chest pain to her visiting nurse who encouraged her to come to the hospital.? Patient describes the chest pain as a dull ache radiating to the back, worse with cough, intermittent, 4/10 at its worse and is usually when she has a coughing bout.? Currently resolved and it is at 0.? She feels that the pain is at the site of her pneumonia.? Denies any fever, no chills, no change in vision, headache, no nausea vomiting, abdominal pain, no urinary symptoms and no lower extremity edema.? On arrival to the ED patient hemodynamically stable with no significant abnormal vitals Labs are significant for WBC count of 10.0, hemoglobin of 11.6, hematocrit 36.5, PT of 13.1, INR of 1.2, Chest x-ray showed few scattered patchy airspace opacities in the mid and lower right lung and at the left lung base concerning for an acute process, pneumonia. ? Patient given IV antibiotics and will be admitted for further management. hospital course: because of pleuritic chest pain, also failed outpatient pneumonia therapy: Subsequently patient was started on IV cefepime in the hospital and seems to be improving ,on discharge patient does not have any pleuritic pain or short of breath. patient was advised to complete p.o. antibiotic therapy, also repeat chest imaging study in 3-4 week with PCP to see resolution of pneumonia. Above management discussed with the patient in detail length she understand and in agreement with the above plan, time spent 50 minutes and 50% time spent on counseling. Significant findings: As above. Procedures performed: None. Treatment and response: As above. Complications: None. Time Spent with Patient Time attestation: Total time spent providing and/or coordinating discharge services: Discharge coordination time: Greater than 30 minutes Quality: Stroke Does the patient have a stroke diagnosis?: No Physical Exam Vital Signs: Vital Signs: Last Vital Signs Temp 98.4 F 07/12/21 08:26 Pulse 103 H 07/12/21 08:26 Resp 16 07/12/21 08:26 BP 160/70 H 07/12/21 08:26 Pulse Ox 94 07/12/21 10:02 BMI result Body Mass Index 42.3 Appearance: Alert.? Oriented X3.? not in distress.? Eyes: Pupils equal, round and reactive to light.? Sclera nonicteric.? ENT: Pharynx normal.? Moist mucous membranes. cvs: rrr, [id number] , no murmur res: air entry seems similar , slightly diminshed at bases. abd: no rebound or guarding ,nt, bs present. ext pulses present , no cyanosis ,Gait well balanced well coordinated. neuro: axo3 , nonfocal. DS: Data Data Completed and Pending Labs on day of discharge: Preliminary micro results at discharge 07/10/21 18:49 Blood Culture - Preliminary Blood - Venous No growth after 24 hours. 07/10/21 18:49 Blood Culture - Preliminary Blood - Venous No growth after 24 hours. Additional Comments Additional comments: Laboratory Results - last 24 hr ? 07/10/21 07/10/21 07/10/21 ? 17:04 18:49 18:49 MCV ? ?99.5 H ? MCH ? ?31.6 ? MCHC ? ?31.8 ? RDW ? ?16.8 H ? Plt Count ? ?435 H ? MPV ? ?10.1 ? Immature Gran % (Auto) ? ?1.1 H ? Neut % (Auto) ? ?64.5 ? Lymph % (Auto) ? ?27.3 ? [place] % (Auto) ? ?6.0 ? Eos % (Auto) ? ?0.7 ? Baso % (Auto) ? ?0.4 ? Lymph # (Auto) ? ?2.8 ? [place] # (Auto) ? ?0.6 ? Eos # (Auto) ? ?0.1 ? Baso # (Auto) ? ?0.0 ? Abs Immat Gran (auto) ? ?0.11 H ? Absolute Neuts (auto) ? ?6.5 ? Absolute Nucleated RBC ? ?0.000 ? Nucleated RBC % (auto) ? ?0.0 ? PT ? ? ? INR ? ? ? APTT ? ? ? D-Dimer High Sensitivty ? ? ? Anion Gap ? ? ?13 Estim Creat Clear Calc ? ? ?79.7 Estimated GFR ? ? ?> 60 Random Glucose ? ? ?96 Lactic Acid ? ? ? Calcium ? ? ?10.0 Magnesium ? ? ?2.0 Total Bilirubin ? ? ?0.4 Direct Bilirubin ? ? ?0.2 AST ? ? ?14 ALT ? ? ?18 Alkaline Phosphatase ? ? ?82 B-Natriuretic Peptide ? ? ? Total Protein ? ? ?7.0 Albumin ? ? ?3.9 COVID-19 (MATT) ?Negative ? ? COVID-19 Clin Com ?See Note ? ? ? 07/10/21 07/10/21 07/10/21 ? 18:49 18:49 18:49 MCV ? ? ? MCH ? ? ? MCHC ? ? ? D RDW ? ? ? Plt Count ? ? ? MPV ? ? ? Immature Gran % (Auto) ? ? ? Neut % (Auto) ? ? ? Lymph % (Auto) ? ? ? [place] % (Auto) ? ? ? Eos % (Auto) ? ? ? Baso % (Auto) ? ? ? Lymph # (Auto) ? ? ? [place] # (Auto) ? ? ? Eos # (Auto) ? ? ? Baso # (Auto) ? ? ? Abs Immat Gran (auto) ? ? ? Absolute Neuts (auto) ? ? ? Absolute Nucleated RBC ? ? ? Nucleated RBC % (auto) ? ? ? PT ?13.1 H ? ? INR ?1.2 H ? ? APTT ?43.7 H ? ? D-Dimer High Sensitivty ?< 150 ? ? Anion Gap ? ? ? Estim Creat Clear Calc ? ? ? Estimated GFR ? ? ? Random Glucose ? ? ? Lactic Acid ? ? ?1.2 Calcium ? ? ? Magnesium ? ? ? Total Bilirubin ? ? ? Direct Bilirubin ? ? ? AST ? ? ? ALT ? ? ? Alkaline Phosphatase ? ? ? B-Natriuretic Peptide ? ?35 ? Total Protein ? ? ? Albumin ? ? ? COVID-19 (MATT) ? ? ? COVID-19 Clin Com ? 07/11/21 07/11/21 ? 07:32 07:32 MCV ?100.0 H ? MCH ?31.1 ? MCHC ?31.1 ? RDW ?16.9 H ? Plt Count ?377 ? MPV ?10.3 ? Immature Gran % (Auto) ?0.9 H ? Neut % (Auto) ?65.2 ? Lymph % (Auto) ?25.1 ? [place] % (Auto) ?7.2 ? Eos % (Auto) ?1.2 ? Baso % (Auto) ?0.4 ? Lymph # (Auto) ?2.1 ? [place] # (Auto) ?0.6 ? Eos # (Auto) ?0.1 ? Baso # (Auto) ?0.0 ? Abs Immat Gran (auto) ?0.07 H ? Absolute Neuts (auto) ?5.4 ? Absolute Nucleated RBC ?0.000 ? Nucleated RBC % (auto) ?0.0 ? PT ? ? INR ? ? APTT ? ? D-Dimer High Sensitivty ? ? Anion Gap ? ?11 L Estim Creat Clear Calc ? ?77.6 Estimated GFR ? ?> 60 Random Glucose ? ?163 H Lactic Acid ? ? Calcium ? ?9.2? D Magnesium ? ? Total Bilirubin ? ? Direct Bilirubin ? ? AST ? ? ALT ? ? Alkaline Phosphatase ? ? B-Natriuretic Peptide ? ? Total Protein ? ? Albumin ? ? COVID-19 (MATT) ? ? COVID-19 Clin Com ? ? Discharge Plan Discharge Patient Disposition: Home, Self-Care Discharge Diagnosis: pneumonia , pleurtic pain Referrals: Physician,Unknown J [Primary Care Provider] - 1 Week Discharge Medications: New cefuroxime axetil 500 mg tablet 500 mg PO BID Qty: 10 0RF azithromycin 500 mg tablet 500 mg PO DAILY 6 Days Qty: 6 0RF Continued baclofen 20 mg tablet 1 tab PO BEDTIME 0RF losartan-hydrochlorothiazide 100-25 mg tablet 1 tab PO DAILY 0RF levothyroxine [Levoxyl] 88 mcg tablet 1 tab PO DAILY 0RF pramipexole 0.25 mg tablet 1 tab PO BEDTIME 0RF Eliquis 5 mg tablet 1 tab PO BID 0RF pantoprazole 40 mg tablet,delayed release (DR/EC) 40 mg PO BID 0RF diphenhydramine HCl 25 mg Tablet 25 mg PO BEDTIME 0RF gabapentin 300 mg capsule 1 cap PO TID 0RF montelukast 10 mg tablet 1 tab PO DAILY 0RF Discharge Orders: Discharge Order (Routine); Ordered 07/12/21 Ordered By: Kehinde Fleming Diet: advance to usual diet Activity on Discharge: As tolerated Stand Alone Forms: Patient Portal Discharge page Care Plan Goals: Patient came to the hospital because of pleuritic chest pain, also failed outpatient pneumonia therapy: Subsequently patient was started on IV cefepime in the hospital and seems to be improving ,on discharge patient does not have any pleuritic pain or short of breath. patient was advised to complete p.o. antibiotic therapy, also repeat chest imaging study in 3-4 week with PCP to see resolution of pneumonia. Health Concerns: As above. Plan of Treatment: As above. Assessment: As above.
[2021-07-12] MEDS: Azithromycin 500 MG TABLET PO (11:19)
--- NOTE | 2021-07-12 12:43 | PC.NURSE ---
Pt D/C from ED Overflow with instructions and prescriptions. Pt states understanding and denies any further questions. All IV's removed prior to D/C. Pending ride home.
--- NOTE | 2021-07-12 14:51 | MHC.CM.PN ---
PT DISCHARGING HOME W/RESUMP OF [facility] FOR SN AND HOME PT (PER VNA PT IS STILL RECEIVING PT), FAMILY FOR TRANSPORT.
== END 2021-07-12 11:00 | disposition home or self-care (01) | DRG 194 ==
LOC: HO.ED 20:11 → HO.EDOVER 22:52
PROVIDERS: Physician Assistant; Admitting Provider Internal Medicine; Emergency Provider Emergency Medicine Emergency Medical Services; Visit Provider Internal Medicine
DX: J18.9 Pneumonia, unspecified organism (principal); Z68.41 Body mass index [BMI] 40.0-44.9, adult; K21.9 Gastro-esophageal reflux disease without esophagitis; I10 Essential (primary) hypertension; Z20.822 Contact with and (suspected) exposure to COVID-19; Z96.653 Presence of artificial knee joint, bilateral; E03.9 Hypothyroidism, unspecified; E66.01 Morbid (severe) obesity due to excess calories; G47.33 Obstructive sleep apnea (adult) (pediatric); G25.81 Restless legs syndrome; Z99.81 Dependence on supplemental oxygen; Z88.2 Allergy status to sulfonamides; Z88.5 Allergy status to narcotic agent; Z79.01 Long term (current) use of anticoagulants; Z79.890 Hormone replacement therapy; Z79.899 Other long term (current) drug therapy
CPT/HCPCS: 36415; 71045; 80048; 80076; 83036; 83605; 83735; 83880; 84484; 85025; 85379; 85610; 85730; 87040; 87635; 93005; 96374; 99285; J0692; J1956; Q0163